=== PATIENT | female | born 1990 | race Caucasian/White ===

== ENCOUNTER 2020-07-08 10:15 | Day surgery (SDC) | payer BC ==
[2020-07-05 12:43] LABS: BASOPHILS 0.7 % (0-2); EOSINOPHILS 4.8 % (0-7); HEMATOCRIT 39.7 % (36.0-48.0); HEMOGLOBIN 13.4 g/dL (12-16); IMMATURE GRANULOCYTES 0.2 % (0-5); LYMPHOCYTE ABS# 1.38 10x3/uL (1.18-3.74); LYMPHOCYTES 33.3 % (15-50); MCH 29.8 pg (26.0-34.0); MCHC 33.8 g/dL (31.0-37.0); MCV 88.2 fL (80.0-100.0); MEAN PLATELET VOLUME 9.6 fL (7.4-10.4); MONOCYTES 13.7 % (2-11); NEUTROPHIL ABS# 1.96 10x3/uL (1.56-6.13); NEUTROPHILS 47.3 % (40-80); PLATELET COUNT 161 10x3/uL (130-400); RDW 12.7 % (11.5-14.5); WBC 4.2 10x3/uL (4.8-10.8)
[~2020-07-08] VITALS: Ht 177.8 cm; Wt 67.6 kg
--- NOTE | ~2020-07-08 | OP ---
PATIENT NAME: JEFF MTZ MEDICAL RECORD: [id number] LOCATION:D[facility] ADMISSION DATE: SURGEON: JEFFERSON PICKERING MD DATE OF OPERATION: 07/08/2020 PREOPERATIVE DIAGNOSIS: High-grade cervical dysplasia. POSTOPERATIVE DIAGNOSIS: High-grade cervical dysplasia. PROCEDURE: Loop electrosurgical excision procedure. SURGEON: Jefferson Pickering MD ANESTHESIA: General. IV FLUIDS: Per anesthesia records. SPECIMENS: Include cervical cone biopsy. FINDINGS: Grossly normal-appearing external genitalia and cervix. COMPLICATIONS: None apparent. DESCRIPTION OF PROCEDURE: The patient was taken to the operating room where general anesthesia was achieved without difficulty. The patient was then prepped and draped in normal sterile fashion in dorsal lithotomy position in the [facility]. The patient was prepped and draped and an insulated speculum was placed into the vagina. Prior to the placement of the speculum, though, approximately 100 cc of clear yellow urine were removed from the patient's bladder via straight catheterization. The cervix was identified with the insulated speculum and a 1 cm loop electrode was then used to excise a cervical cone biopsy to a depth of approximately 8 mm. This cone biopsy was then removed with an insulated forcep and the cervical crater was then cauterized with the ball cautery at a depth of approximately another 1-2 mm. Cervical os was found to be patent with a cervical dilator and good hemostasis was noted. Ferrous subsulfate was applied to the cone biopsy crater and good hemostasis was noted. The speculum was removed. The patient tolerated the procedure well and was transferred to postanesthesia recovery stable without incident. TRANSINT:[id number] Voice Confirmation ID: [id number] DOCUMENT ID: [id number] JEFFERSON PICKERING MD CC: [id number] DICTATION DATE: 08/05/20510 TIN CAN FEEDER: 08/05/20 0716 [facility] 07/08/20 [place] [id number] [place] [id number]
[2020-07-08 10:44] VITALS: BP 105/61; Ht 177.8 cm; Wt 67.6 kg
[2020-07-08 10:58] LABS: HCG URINE NEGATIVE (NEGATIVE)
--- NOTE | 2020-07-08 15:30 | NUR ---
DISCHARGE INSTRUCTIONS REVIEWED WITH PT AND COPY PROVIDED. ORIGINAL RX FOR NORCO GIVEN TO PT. PT VOICED UNDERSTANDING OF ALL. IV THEN DC'D WITH CATH TIP INTACT AND PT GETTING DRESSED FOR DISCHARGE HOME.
--- NOTE | 2020-07-08 15:32 | NUR ---
DISCHARGED VIA W/C, ACCOMPANIED BY MARYSOL WASHBURN, TO [facility] WITH FRIEND DRIVING. ALL BELONGINGS WITH PT/FRIEND.
== END 2020-07-08 15:32 | disposition home or self-care (01) ==
LOC: D.OPS 10:15
PROVIDERS: ATTEND Obstetrics & Gynecology
DX: R87.613 High grade squamous intraepithelial lesion on cytologic smear of cervix (HGSIL) (principal)